=== PATIENT | female | born 1995 | race Caucasian/White ===

== ENCOUNTER 2016-11-27 02:35 | Emergency (ER) | payer OTHER ==
[~2016-11-27] VITALS: Ht 170.2 cm; Wt 68.2 kg
[2016-11-27 02:37] VITALS: TEMP 98.2
[2016-11-27] MEDS ORDERED: NORCO 325 MG-51 TAB PO (03:52)
[2016-11-27] MEDS ORDERED: PERCOCET 325 MG1 TA2 PO (04:47)
[2016-11-27 05:25] VITALS: BP 130/84; PULSE 80
== END 2016-11-27 05:15 | disposition home or self-care (01) ==
LOC: COL.ER 02:35
DX: S92.322A Displaced fracture of second metatarsal bone, left foot, initial encounter for closed fracture (principal); S92.332A Displaced fracture of third metatarsal bone, left foot, initial encounter for closed fracture; S90.812A Abrasion, left foot, initial encounter; W18.39XA Other fall on same level, initial encounter